=== PATIENT | female | born 1970 | race Hispanic/Latino ===

== ENCOUNTER 2021-06-13 18:29 | Inpatient (IN) | payer BC, OTHER ==
[~2021-06-13] VITALS: Ht 160 cm; Wt 101.9 kg
[2021-06-13] MEDS ORDERED: 0.9%NACL 1000ML 1,000 ML IV ONE (19:30)
[2021-06-13] MEDS ORDERED: MORPHINE 2 MG SYG IVP STA (19:53)
[2021-06-13] MEDS ORDERED: ONDANSETRON 4MG INJ IVP ONE (20:00)
[2021-06-13] MEDS ORDERED: PANTOPRAZOLE 40 MG/VIAL IVP ONE (20:00)
[2021-06-13] MEDS: LACTATED RINGERS 1000ML 1,000 ML IV SCH (21:00)
[2021-06-13] MEDS ORDERED: NITROGLYCERIN 0.4 MG SL TAB SL PRN (21:00)
[2021-06-13] MEDS ORDERED: HYDRALAZINE 20MG/ML VIAL IM PRN (21:00)
[2021-06-13 21:28] LABS: BASOPHILS % (AUTO) 0.4 % (0.0-5.0); EOSINOPHILS % (AUTO) 0.5 % (0.0-8.0); HEMATOCRIT 41.2 % (36-48); LYMPHOCYTES % (AUTO) 17.5 % (21.0-51.0); MEAN CORPUSCULAR HEMOGLOBIN 30.3 pg (27.0-33.0); MEAN CORPUSCULAR HGB CONC 33.5 g/dL (32.0-36.0); MEAN CORPUSCULAR VOLUME 90.5 fL (79-99); MONOCYTES % (AUTO) 4.6 % (3.0-13.0); NEUTROPHILS % (AUTO) 76.6 % (40.0-77.0); PLATELET COUNT (AUTO) 315 K/uL (130-400); RED BLOOD CELL COUNT(AUTO) 4.55 MIL/uL (4.00-5.50); RED CELL DISTRIBUTION WIDTH 12.6 % (11.0-15.5); WHITE BLOOD COUNT (AUTO) 11.6 K/uL (4.8-10.8)
[2021-06-13 21:36] LABS: CREATININE 0.8 mg/dL (0.5-1.5); POTASSIUM 3.6 mmol/L (3.5-5.1)
[2021-06-13 21:45] LABS: ALBUMIN 3.6 g/dL (3.5-5.0); BILIRUBIN,TOTAL 0.9 mg/dL (0.2-1.0); TOTAL PROTEIN, SERUM 7.9 g/dL (6.0-8.3)
[2021-06-13 22:10] LABS: CRP QUANTITATIVE 33.4 mg/L (0.00-9.0)
[2021-06-13] MEDS: METRONIDAZOLE 500MG/100ML BAG 100 ML IVPB SCH (22:26)
[2021-06-13] MEDS ORDERED: LOSA1TAB37 PO (23:31)
[2021-06-14 02:37] LABS: AMPHET/METH SCREEN,URINE NEGATIVE (NEGATIVE); BARBITURATE SCREEN, URINE NEGATIVE (NEGATIVE); BENZODIAZEPINES SCREEN,URINE NEGATIVE (NEGATIVE); CANNABINOID SCREEN,URINE NEGATIVE (NEGATIVE); COCAINE SCREEN,URINE NEGATIVE (NEGATIVE); OPIATE SCREEN,URINE NEGATIVE (NEGATIVE); PHENCYCLIDINE SCREEN,URINE NEGATIVE (NEGATIVE)
[2021-06-14] MEDS: ONDANSETRON 4MG INJ IV PRN (04:03)
[2021-06-14] MEDS: MORPHINE 2 MG SYG IVP PRN ×4 (04:03→17:23)
[2021-06-14] MEDS: LACTATED RINGERS 1000ML 1,000 ML IV SCH ×5 (04:03→21:18)
[2021-06-14] MEDS: METRONIDAZOLE 500MG/100ML BAG 100 ML IVPB SCH ×3 (05:54→21:17)
[2021-06-14] MEDS: ENOXAPARIN SODIUM 40 MG/0.4 ML SYRINGE SQ SCH (08:14)
[2021-06-14] MEDS: PANTOPRAZOLE 40 MG/VIAL IVP SCH (08:14)
[2021-06-14 15:20] VITALS: BP 134/72
[2021-06-14 19:00] VITALS: BP 142/75
[2021-06-14] MEDS ORDERED: LORAZEPAM 2 MG/ML 1 ML VIAL IVP ONE (23:00)
[2021-06-14] MEDS ORDERED: LORAZEPAM 2 MG/ML 1 ML VIAL ONE (23:02)
[2021-06-15] VITALS (7 sets, daily range): BP systolic 113–146; BP diastolic 58–82
[2021-06-15 03:57] LABS: BASOPHILS % (AUTO) 0.3 % (0.0-5.0); EOSINOPHILS % (AUTO) 1.3 % (0.0-8.0); HEMATOCRIT 35.4 % (36-48); LYMPHOCYTES % (AUTO) 24.5 % (21.0-51.0); MEAN CORPUSCULAR HEMOGLOBIN 30.3 pg (27.0-33.0); MEAN CORPUSCULAR HGB CONC 33.1 g/dL (32.0-36.0); MEAN CORPUSCULAR VOLUME 91.7 fL (79-99); MONOCYTES % (AUTO) 6.7 % (3.0-13.0); NEUTROPHILS % (AUTO) 66.7 % (40.0-77.0); PLATELET COUNT (AUTO) 239 K/uL (130-400); RED BLOOD CELL COUNT(AUTO) 3.86 MIL/uL (4.00-5.50); RED CELL DISTRIBUTION WIDTH 12.3 % (11.0-15.5)
[2021-06-15 04:18] LABS: BILIRUBIN,TOTAL 0.7 mg/dL (0.2-1.0); CREATININE 0.6 mg/dL (0.5-1.5); POTASSIUM 3.7 mmol/L (3.5-5.1); TOTAL PROTEIN, SERUM 6.8 g/dL (6.0-8.3)
[2021-06-15] MEDS: LACTATED RINGERS 1000ML 1,000 ML IV SCH ×4 (04:48→22:36)
[2021-06-15] MEDS: METRONIDAZOLE 500MG/100ML BAG 100 ML IVPB SCH (04:48)
[2021-06-15] MEDS: MORPHINE 4 MG SYG IV PRN ×2 (04:54→22:36)
[2021-06-15] MEDS: PANTOPRAZOLE 40 MG/VIAL IVP SCH (07:42)
[2021-06-15] MEDS: ENOXAPARIN SODIUM 40 MG/0.4 ML SYRINGE SQ SCH (07:44)
[2021-06-16 04:07] VITALS: BP 124/68
[2021-06-16 05:18] LABS: BASOPHILS % (AUTO) 0.4 % (0.0-5.0); EOSINOPHILS % (AUTO) 2.4 % (0.0-8.0); HEMATOCRIT 34.7 % (36-48); LYMPHOCYTES % (AUTO) 24.1 % (21.0-51.0); MEAN CORPUSCULAR HEMOGLOBIN 30.8 pg (27.0-33.0); MEAN CORPUSCULAR HGB CONC 33.4 g/dL (32.0-36.0); MONOCYTES % (AUTO) 7.5 % (3.0-13.0); NEUTROPHILS % (AUTO) 65.1 % (40.0-77.0); PLATELET COUNT (AUTO) 239 K/uL (130-400); RED BLOOD CELL COUNT(AUTO) 3.77 MIL/uL (4.00-5.50); RED CELL DISTRIBUTION WIDTH 12.3 % (11.0-15.5); WHITE BLOOD COUNT (AUTO) 9.6 K/uL (4.8-10.8)
[2021-06-16 05:47] LABS: ALBUMIN 3.1 g/dL (3.5-5.0); BILIRUBIN,TOTAL 0.5 mg/dL (0.2-1.0); CREATININE 0.5 mg/dL (0.5-1.5); MAGNESIUM 1.9 mg/dL (1.80-2.40); PHOSPHORUS 3.1 mg/dL (2.5-4.9); POTASSIUM 3.6 mmol/L (3.5-5.1); TOTAL PROTEIN, SERUM 7.1 g/dL (6.0-8.3)
[2021-06-16 08:00] VITALS: BP 123/74
[2021-06-16] MEDS: ONDANSETRON 4MG INJ IV PRN (09:15)
[2021-06-16] MEDS: PANTOPRAZOLE 40 MG/VIAL IVP SCH (09:15)
[2021-06-16] MEDS: ENOXAPARIN SODIUM 40 MG/0.4 ML SYRINGE SQ SCH (09:16)
[2021-06-16] MEDS: LEVOFLOXACIN 750 MG/D5W 150 ML 150 ML IV SCH (09:27)
[2021-06-16 11:53] VITALS: BP 121/79
[2021-06-16] MEDS: LACTATED RINGERS 1000ML 1,000 ML IV SCH (13:06)
[2021-06-16 16:00] VITALS: BP 149/75
[2021-06-16 20:18] VITALS: BP 115/89
[2021-06-16] MEDS: MORPHINE 2 MG SYG IVP PRN (23:44)
[2021-06-16 23:52] VITALS: BP 131/69
[2021-06-17 03:37] VITALS: BP 137/73
[2021-06-17] MEDS: MORPHINE 4 MG SYG IV PRN (04:14)
[2021-06-17] MEDS: LACTATED RINGERS 1000ML 1,000 ML IV SCH ×2 (04:20→18:11)
[2021-06-17 05:53] LABS: BASOPHILS % (AUTO) 0.6 % (0.0-5.0); EOSINOPHILS % (AUTO) 2.9 % (0.0-8.0); HEMATOCRIT 35.1 % (36-48); LYMPHOCYTES % (AUTO) 28.7 % (21.0-51.0); MEAN CORPUSCULAR HEMOGLOBIN 29.8 pg (27.0-33.0); MEAN CORPUSCULAR HGB CONC 32.5 g/dL (32.0-36.0); MEAN CORPUSCULAR VOLUME 91.9 fL (79-99); MONOCYTES % (AUTO) 7.4 % (3.0-13.0); NEUTROPHILS % (AUTO) 59.9 % (40.0-77.0); PLATELET COUNT (AUTO) 258 K/uL (130-400); RED BLOOD CELL COUNT(AUTO) 3.82 MIL/uL (4.00-5.50); RED CELL DISTRIBUTION WIDTH 12.3 % (11.0-15.5); WHITE BLOOD COUNT (AUTO) 8.7 K/uL (4.8-10.8)
[2021-06-17 06:28] LABS: BILIRUBIN,TOTAL 0.4 mg/dL (0.2-1.0); CREATININE 0.6 mg/dL (0.5-1.5); POTASSIUM 3.3 mmol/L (3.5-5.1); TOTAL PROTEIN, SERUM 7.1 g/dL (6.0-8.3)
[2021-06-17 08:00] VITALS: BP 132/66
[2021-06-17] MEDS: PANTOPRAZOLE 40 MG/VIAL IVP SCH (08:44)
[2021-06-17] MEDS: LEVOFLOXACIN 750 MG/D5W 150 ML 150 ML IV SCH (08:44)
[2021-06-17] MEDS: ENOXAPARIN SODIUM 40 MG/0.4 ML SYRINGE SQ SCH (08:44)
[2021-06-17 12:00] VITALS: BP 132/78
[2021-06-17] MEDS ORDERED: KCL 20 MEQ ERTAB PO SCH (12:00)
[2021-06-17] MEDS ORDERED: KCL 20 MEQ ERTAB PO ONE (12:11)
[2021-06-17 16:00] VITALS: BP 132/77
[2021-06-17 20:25] VITALS: BP 128/77
[2021-06-17 23:56] VITALS: BP 106/52
[2021-06-18] VITALS (26 sets, daily range): BP systolic 110–149; BP diastolic 62–109
[2021-06-18] MEDS: MORPHINE 2 MG SYG IVP PRN ×4 (03:44→23:56)
[2021-06-18 04:56] LABS: BASOPHILS % (AUTO) 0.5 % (0.0-5.0); EOSINOPHILS % (AUTO) 2.9 % (0.0-8.0); LYMPHOCYTES % (AUTO) 32.6 % (21.0-51.0); MEAN CORPUSCULAR HEMOGLOBIN 29.9 pg (27.0-33.0); MEAN CORPUSCULAR HGB CONC 32.9 g/dL (32.0-36.0); MEAN CORPUSCULAR VOLUME 90.9 fL (79-99); MONOCYTES % (AUTO) 8.5 % (3.0-13.0); NEUTROPHILS % (AUTO) 55.1 % (40.0-77.0); PLATELET COUNT (AUTO) 296 K/uL (130-400); RED BLOOD CELL COUNT(AUTO) 3.85 MIL/uL (4.00-5.50); RED CELL DISTRIBUTION WIDTH 12.4 % (11.0-15.5); WHITE BLOOD COUNT (AUTO) 7.8 K/uL (4.8-10.8)
[2021-06-18 05:16] LABS: CREATININE 0.6 mg/dL (0.5-1.5); POTASSIUM 3.6 mmol/L (3.5-5.1)
[2021-06-18] MEDS: LACTATED RINGERS 1000ML 1,000 ML IV SCH ×4 (06:36→23:56)
[2021-06-18] MEDS: ENOXAPARIN SODIUM 40 MG/0.4 ML SYRINGE SQ SCH (07:14)
[2021-06-18] MEDS: LEVOFLOXACIN 750 MG/D5W 150 ML 150 ML IV SCH (07:55)
[2021-06-18] MEDS: PANTOPRAZOLE 40 MG/VIAL IVP SCH (07:55)
[2021-06-18] MEDS ORDERED: BUPIVACAINE/PF 0.5% 10ML VIAL ONE (13:03)
[2021-06-18] MEDS ORDERED: SUCCINYLCHOLINE 200MG/10ML SYR ONE (13:16)
[2021-06-18] MEDS ORDERED: LIDOCAINE HCL MPF 1% 5ML VIAL ONE (13:16)
[2021-06-18] MEDS ORDERED: ROCURONIUM 10MG/1ML SYR 10 MG/ML ML ONE (13:16)
[2021-06-18] MEDS ORDERED: FENTANYL CITRATE PF 50 MCG/1 ML 2ML VIAL ONE (13:16)
[2021-06-18] MEDS ORDERED: PROPOFOL 10 MG/ML 20ML VIAL IV ONE (13:16)
[2021-06-18] MEDS ORDERED: MIDAZOLAM HCL 1 MG/ML 2ML VIAL ONE (13:16)
[2021-06-18] MEDS ORDERED: MEPERIDINE-PF 25 MG/ML SYG ONE (14:15)
[2021-06-18] MEDS: ONDANSETRON 4MG INJ IV PRN (14:17)
[2021-06-19 03:58] LABS: BASOPHILS % (AUTO) 0.4 % (0.0-5.0); EOSINOPHILS % (AUTO) 1.5 % (0.0-8.0); LYMPHOCYTES % (AUTO) 32.7 % (21.0-51.0); MEAN CORPUSCULAR HEMOGLOBIN 30.3 pg (27.0-33.0); MEAN CORPUSCULAR HGB CONC 32.9 g/dL (32.0-36.0); MEAN CORPUSCULAR VOLUME 92.1 fL (79-99); MONOCYTES % (AUTO) 7.2 % (3.0-13.0); NEUTROPHILS % (AUTO) 57.9 % (40.0-77.0); PLATELET COUNT (AUTO) 304 K/uL (130-400); RED CELL DISTRIBUTION WIDTH 12.5 % (11.0-15.5); WHITE BLOOD COUNT (AUTO) 9.5 K/uL (4.8-10.8)
[2021-06-19 04:09] LABS: ALBUMIN 3.1 g/dL (3.5-5.0); BILIRUBIN,TOTAL 0.4 mg/dL (0.2-1.0); CREATININE 0.7 mg/dL (0.5-1.5); TOTAL PROTEIN, SERUM 7.3 g/dL (6.0-8.3)
[2021-06-19 04:14] VITALS: BP 144/74
[2021-06-19] MEDS: MORPHINE 4 MG SYG IV PRN ×2 (06:33→11:22)
[2021-06-19 07:30] VITALS: BP 140/78
[2021-06-19] MEDS: LEVOFLOXACIN 750 MG/D5W 150 ML 150 ML IV SCH (08:11)
[2021-06-19] MEDS: ENOXAPARIN SODIUM 40 MG/0.4 ML SYRINGE SQ SCH (08:11)
[2021-06-19] MEDS: PANTOPRAZOLE 40 MG/VIAL IVP SCH (08:11)
[2021-06-19] MEDS ORDERED: KETO10 PO (09:34)
[2021-06-19] MEDS ORDERED: LOSARTAN 50 MG TABLET PO SCH (10:00)
[2021-06-19] MEDS ORDERED: HYDROCHLOROTHIAZIDE 25 MG TABLET PO SCH (10:00)
[2021-06-19 11:00] VITALS: BP 141/71
[2021-06-19 16:00] VITALS: BP 138/69
== END 2021-06-19 17:45 | disposition home or self-care (01) | DRG 417 ==
LOC: EDH 18:29 → EDHIP 20:38 → 4BH 23:48 → EDHIP 06-14 00:14 → 4AH 06-14 13:15
PROVIDERS: ADMIT Internal Medicine; ATTEND Internal Medicine
PROC: 0FT44ZZ Resection of Gallbladder, Percutaneous Endoscopic Approach (ICD-10-PCS; principal; 2021-06-18 13:15)
DX: K80.20 Calculus of gallbladder without cholecystitis without obstruction (principal); K85.10 Biliary acute pancreatitis without necrosis or infection; R18.8 Other ascites; E66.01 Morbid (severe) obesity due to excess calories; K21.9 Gastro-esophageal reflux disease without esophagitis; I10 Essential (primary) hypertension; R74.8 Abnormal levels of other serum enzymes; Z20.822 Contact with and (suspected) exposure to COVID-19; E87.71 Transfusion associated circulatory overload; K82.8 Other specified diseases of gallbladder; Z68.39 Body mass index [BMI] 39.0-39.9, adult; Z90.710 Acquired absence of both cervix and uterus
CPT/HCPCS: 36415; 71045; 74181; 76705; 78227; 80048; 80053; 80061; 80305; 82150; 83690; 83735; 84100; 84145; 84484; 85025; 86140; 87635; 93005; A9537; C9113; G0378; J0330; J1650; J1956; J2060; J2175; J2250; J2270; J2405; J2704; J3010; J3490; J7030; J7120

== ENCOUNTER 2021-06-30 18:39 | Emergency (ER) | payer OTHER ==
[~2021-06-30] VITALS: Ht 160 cm; Wt 97.5 kg
[2021-06-30 18:39] VITALS: BP 149/78
[~2021-06-30 18:39] MED LIST: KETO10 PO; LOSA1TAB37 PO
== END 2021-06-30 22:15 | disposition left against medical advice (07) ==
LOC: EDH 18:39
DX: K08.89 Other specified disorders of teeth and supporting structures (principal); Z53.21 Procedure and treatment not carried out due to patient leaving prior to being seen by health care provider

== ENCOUNTER → 2024-05-26 | Outpatient (CLI) | payer OTHER ==
[~2024-05-26] MED LIST changes: +CLIN-141 PO; +IBUP-2077 PO
== END | disposition home or self-care (01) ==
LOC: RAH 10:00
PROVIDERS: ATTEND Family Medicine
DX: Z12.31 Encounter for screening mammogram for malignant neoplasm of breast (principal); R92.30 Dense breasts, unspecified
CPT/HCPCS: 77067

== ENCOUNTER 2024-05-28 18:36 | Emergency (ER) | payer OTHER ==
[~2024-05-28] VITALS: Ht 160 cm; Wt 108.9 kg
[~2024-05-28 18:36] MED LIST changes: -CLIN-141 PO; -IBUP-2077 PO
[2024-05-28 19:36] VITALS: BP 155/73; PULSE 68; RESP 18; TEMP 97.7; O2SAT 98
[2024-05-28] MEDS ORDERED: CLIN-141 PO (19:40)
[2024-05-28] MEDS ORDERED: IBUP-2077 PO (19:40)
[2024-05-28] MEDS: CLINDAMYCIN 150 MG CAP PO ONE (19:52)
[2024-05-28] MEDS: ketOROlac 60 MG VIAL (30MG/ML) IM ONE (19:53)
== END 2024-05-28 20:03 | disposition home or self-care (01) ==
LOC: EDH 18:36
DX: K02.9 Dental caries, unspecified (principal); I10 Essential (primary) hypertension; Z79.899 Other long term (current) drug therapy; Z90.710 Acquired absence of both cervix and uterus; Z98.51 Tubal ligation status
CPT/HCPCS: 99283; 96372; J1885